=== PATIENT | female | born 1980 | race Caucasian/White ===

== ENCOUNTER → 2021-09-16 07:45 | Outpatient (CLI) | payer OTHER, SELFPAY ==
[2021-09-16 12:30] LABS: Influenza Control Positive
[2021-09-16 18:54] LABS: SARS-CoV-2 RNA PCR Negative
== END ==
PROVIDERS: PCP Family Medicine; Visit Provider Family Medicine
DX: R68.89 Other general symptoms and signs (principal); Z20.822 Contact with and (suspected) exposure to COVID-19
CPT/HCPCS: 87804; C9803; U0003; U0005

== ENCOUNTER 2022-09-21 14:01 | Emergency (ER) | payer OTHER, SELFPAY ==
[2022-09-21 14:06] VITALS: BP 133/84; PULSE 117; RESP 16; TEMP 37.9; O2SAT 100
--- NOTE | 2022-09-21 14:18 | ED.URI ---
HPI - URI/Sore Throat General Chief Complaint: Upper Respiratory Infection Stated Complaint: ear and sinus infection Time Seen by Provider: 09/21/22 14:22 Source: patient and RN notes reviewed Mode of arrival: ambulatory Limitations: no limitations History of Present Illness HPI Narrative: 41-year-old female presents concern for left ear pain, sinus pressure, sinus congestion, sinus pain. Reports chills and sweats. She denies known sick contacts. Reports she recently had flu. MD elicited complaint: sinus pain and other (Ear pain) Related Data Allergies Allergy/AdvReac Type Severity Reaction Status Date / Time peanut Allergy Unknown Congested Verified 09/21/22 14:25 Penicillins Allergy Unknown Hives Verified 09/21/22 14:25 shellfish derived Allergy Unknown Diarrhea Verified 09/21/22 14:25 strawberry Allergy Unknown Congested Verified 09/21/22 14:25 White Fish Allergy Unknown Itching Uncoded 09/21/22 14:25 Review of Systems Review of Systems: CONSTITUTIONAL: Reports malaise, chills, sweats EYES: Denies visual changes, redness, or discharge. ENT: Reports rhinorrhea, congestion, sinus pain, otalgia CARDIOVASCULAR: Denies chest pain, palpitations, or edema. RESPIRATORY: Denies cough, reports chest congestion. Denies dyspnea. GASTROINTESTINAL: Denies abdominal pain, nausea, vomiting, diarrhea SKIN: Denies rash or itching. MUSCULOSKELETAL: Denies myalgia. NEUROLOGIC: Reports headache. All systems reviewed & are unremarkable except as noted in HPI and below PMFSH Past Medical History Medical History (Updated 09/21/22 @ 14:30 by Vita Hernandez NP) Acute upper respiratory infection, unspecified Chronic sinusitis, unspecified Sinusitis Surgical History Surgical History H/O section Family History Family History Other Family history of multiple sclerosis Social History Social History Years smoked: 20 Smoking status: Current every day smoker Second hand tobacco smoke exposure: Yes Smoking end date: 10/14/12 Alcohol intake: current Drinks per week: 15 Substance use: never Comments At time of signature, agree with nursing past medical, surgical, social and family history. There is no relevant family history pertinent to the presenting complaint Exam Narrative: GENERAL: Nontoxic appearing and in no acute distress. HEAD: Normocephalic EYES: PERRLA, conjunctivae clear ENT: Nares clear, turbinates edematous and erythematous, clear discharge. Mucous membranes moist. TM pearly hodges with dull light reflex on the left, yellow and bulging on the right; no tragal tenderness. Oropharynx not erythematous without lesions. Tonsils not enlarged and without exudate, no drooling, no hoarseness, no trismus, uvula midline. NECK: Supple. No lymphadenopathy CHEST: Clear to auscultation, breath sounds equal. No wheezing, rhonchi, rales, or stridor. No respiratory distress, speaks in full sentences. HEART: Regular rate and rhythm. No murmur heard. SKIN: Warm, dry, no rash. NEURO: Alert and oriented x3. PSYCH: Normal mood and affect Course Course Emergency Course: Patient is aware of diagnosis, understands and agrees to treatment plan. Anticipatory guidance given. Patient agrees to follow-up as directed and is aware of reasons to seek care at the emergency department. Portions of this record may have been created with voice recognition software Level of Care: Express Care Visit Vital Signs Vital signs: Vital Signs Temperature 100.3 F H 09/21/22 14:06 Pulse Rate 117 H 09/21/22 14:06 Respiratory Rate 16 09/21/22 14:06 Blood Pressure 133/84 09/21/22 14:06 Pulse Oximetry 100 09/21/22 14:06 Oxygen Delivery Room Air 09/21/22 14:06 Temperature 100.3 F H 09/21/22 14:06 Pulse Rate 117 H 09/21/22 14:06 Respiratory Rate 16
== END 2022-09-21 14:40 | disposition home or self-care (01) ==
PROVIDERS: Emergency Provider Nurse Practitioner; PCP Family Medicine
DX: H66.92 Otitis media, unspecified, left ear (principal); F17.210 Nicotine dependence, cigarettes, uncomplicated
CPT/HCPCS: 99213; G0463

== ENCOUNTER 2024-06-04 14:30 | Outpatient (CLI) | payer OTHER, SELFPAY ==
[2024-06-04 19:34] LABS: Add Urine Microscopic? NO; Appearance Urine Clear (Clear); Bilirubin Urine Negative (Negative); Blood Urine Negative (Negative); Color Urine Yellow (Yellow); Glucose Urine UA Negative (Negative); Ketones Urine Negative (Negative); Leukocyte Esterase Ur Negative LEU/UL (Negative); Nitrate Urine Negative (Negative); Protein Urine Negative (Negative); Specific Grav Ur 1.012 (1.001-1.035); Urobilinogen Urine 0.2 mg/dL (<2.0)
== END 2024-06-04 14:31 | disposition home or self-care (01) ==
LOC: ANHBWCLAB 14:32
PROVIDERS: PCP Nurse Practitioner Adult Health; Visit Provider Nurse Practitioner Adult Health
DX: M54.50 Low back pain, unspecified (principal); R39.9 Unspecified symptoms and signs involving the genitourinary system; R50.9 Fever, unspecified; R82.90 Unspecified abnormal findings in urine
CPT/HCPCS: 81003

== ENCOUNTER 2025-07-06 07:38 | Outpatient (CLI) | payer BC, SELFPAY ==
--- OUTSIDE RECORDS SUMMARY | 2025-07-06 07:47 | XMS_ITS | Clinical Summary ---
Author Organization [address] Address [address] [place] [address] Care Team Providers Care Customs Consultant Name Role Phone Roly Yepez MD Primary Care Provider [phone] Allergies Active Allergy Reactions Criticality Noted Date Comments Penicillins Shellfish Containing Products [place] Medications benzonatate (TESSALON) 100 mg capsuleIndicati ons:Cough Take 1 capsule (100 mg total) by mouth 3 (three) times a day as needed for cough 42 capsule 4 Active al & mag hydroxide simethicone-dip henhydramine-li docaine-nystati n (MAGIC MOUTHWASH) suspension 6-9-5-1Indicati ons:Thrush, oral Swish and swallow 15 mL every 4 (four) hours as needed (thrush) 360 mL 5 Active mupirocin (BACTROBAN) 2 % ointmentIndicat ions:Infected lesion of skin Apply topically 3 (three) times a day 22 g 5 Active clindamycin (CLEOCIN) 300 mg capsuleIndicati ons:Infected lesion of skin Take 1 capsule (300 mg total) by mouth 3 (three) times a day for 10 days 30 capsule 5 06/07/20 25 Active Problems No known active problems Encounters Date Type Department Care Team Description 05/28/2025 6:00 PM CDT Office Visit [facility] [place] [address] [place] [address] Eilerman, India Lisbet, DIRECTOR OF CASINO Infected lesion of skin (Primary Dx); Thrush, oral from Last 3 Months Surgical History Surgery Date Site/Laterality Comments SECTION Social History Tobacco Use Types Packs/Day Years Used Date Smoking Tobacco: Every Day Cigarettes 0.5 15 Smokeless Tobacco: Never Tobacco Cessation:Ready to Q uit: No; Counseling Given: Not Answered Comments Unknown Sex and Gender Information Value Date Recorded Sex Assigned at Not on file 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 Gender Identity Not on file Sexual Orientation Not on file Obstetrics History Last Filed Vital Signs Vital Sign Reading Time Taken Comments Blood Pressure 122/82 05/28/2025 6:02 PM CDT Pulse 115 05/28/2025 6:02 PM CDT Temperature 36.7 C (98 F) 05/28/2025 6:02 PM CDT Respiratory Rate 20 05/28/2025 6:02 PM CDT Oxygen Saturation 98% 05/28/2025 6:02 PM CDT Inhaled Oxygen Concentration - - Weight 57.2 kg (126 lb) 05/28/2025 6:02 PM CDT Height 165.1 cm (5' 5) 05/28/2025 6:02 PM CDT Body Mass Index 20.97 05/28/2025 6:02 PM CDT Plan of Treatment Health Maintenance Due Date Last Done Comments Breast Cancer Screening-Mammogram 1982 Cervical Cancer Screening 1982 Depression Screening 1982 Hepatitis C Screening 1982 DTaP/Tdap/Td Vaccine (1 - Tdap) 1993 Varicella Vaccines (1 of 2 - 13+ 2-dose series) 12/26/1995 Hepatitis B Screening 2000 Regular Well Visit/Exam 18-64 2000 Pneumococcal vaccine <65 (1 of 2 - PCV) 2001 HPV Vaccines (1 - 3-dose SCDM series) 2009 Covid-19 Vaccine (3 - 2024- season) 2025, 06/09/2021 Influenza Vaccine (#1) 2025 Care Teams Customs Consultant Relationship Specialty Start Date End Date Roly Yepez MD PCP - General Family Practice 10/16/23
[2025-07-06 18:41] LABS: Hematocrit 38.4 % (37.0-47.0); Hemoglobin 11.2 g/dL (12.0-15.0); Mean Corpuscular HGB Conc 29.2 g/dl (32-36); Mean Corpuscular Hemoglobin 25.4 pg (26-34); Mean Corpuscular Volume 87.1 fl (80-100); Platelet Count Result 347 k/mm3 (150-375); Red Blood Count 4.41 M/mm3 (4.2-5.4); White Blood Count 5.9 K/mm3 (4.5-10.0)
[2025-07-06 19:35] LABS: Alanine Aminotransferase 20 U/L (6-35); Albumin Level 4.6 g/dL (3.5-5.1); Alkaline Phosphatase 72 U/L (38-126); Anion Gap 7 mmol/L (4-12); Aspartate Amino Transferase 68 U/L (14-36); Bilirubin,Total 0.2 mg/dL (0.2-1.3); Blood Urea Nitrogen 17 mg/dL (7-17); Calcium 9.3 mg/dL (8.4-10.2); Carbon Dioxide 29 mmol/L (22-30); Chloride 103 mmol/L (98-107); Cholesterol 140 mg/dL (0-200); Estimated Glomerular Filt Rate > 60; Glucose 86 mg/dL (65-110); HDL Direct 66 mg/dL; Potassium 4.3 mmol/L (3.4-5.0); Sodium 139 mmol/L (137-145); Total Protein 7.8 g/dL (6.3-8.2); Triglycerides 85 mg/dL (<150)
[2025-07-06 19:54] LABS: Free T4 Free Thyroxine 1.00 ng/dL (0.78-2.19)
[2025-07-06 20:13] LABS: Thyroid Stimulating Hormone 5.840 uIU/mL (0.465-4.680)
[2025-07-09 09:09] LABS: ANA by IFA Rfx Titer/Pattern Positive (.)
== END 2025-07-06 07:39 | disposition home or self-care (01) ==
LOC: ANHBWCLAB 07:39
PROVIDERS: PCP Nurse Practitioner Adult Health; Visit Provider Nurse Practitioner Adult Health
DX: Z00.00 Encounter for general adult medical examination without abnormal findings (principal); Z13.9 Encounter for screening, unspecified
CPT/HCPCS: 36415; 80053; 80061; 84439; 84443; 85027; 86038

== ENCOUNTER 2025-07-27 07:44 | Outpatient (CLI) | payer BC, SELFPAY ==
--- OUTSIDE RECORDS SUMMARY | 2025-07-27 07:50 | XMS_ITS | Clinical Summary ---
Author Organization [address] Address [address] [place] [address] Care Team Providers Care Lead Cargo Mover Name Role Phone Roly Yepez MD Primary Care Provider [phone] Allergies Active Allergy Reactions Criticality Noted Date Comments Penicillins Shellfish Containing Products [place] Medications benzonatate (TESSALON) 100 mg capsuleIndicati ons:Cough Take 1 capsule (100 mg total) by mouth 3 (three) times a day as needed for cough 42 capsule 4 Active al & mag hydroxide simethicone-dip henhydramine-li docaine-nystati n (MAGIC MOUTHWASH) suspension 6-5-3-1Indicati ons:Thrush, oral Swish and swallow 15 mL every 4 (four) hours as needed (thrush) 360 mL 5 Active mupirocin (BACTROBAN) 2 % ointmentIndicat ions:Infected lesion of skin Apply topically 3 (three) times a day 22 g 5 Active Active Problems No known active problems Encounters Date Type Department Care Team Description 05/28/2025 6:00 PM CDT Office Visit [facility] [place] [address] [place] [address] India Amado NP Infected lesion of skin (Primary Dx); Thrush, [...] on file 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
--- OUTSIDE RECORDS SUMMARY | 2025-07-27 07:51 | XMS_ITS | Data Portability ---
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 is longer than normal, if persistent will change pills. 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 Is smoking again, so will have to change to minipill. advised quitting smoking as better option, seems unlikely kids are 15 and 17 Not available 11/17/2020 16:28:54 Plan of Treatment Reminders Order Date Submit Date Provider Last Modified By Organization Details Last Modified Time Details Appointments None recorded. Lab unlisted lab - igp, rfx aptima HPV ascu 2018 019 [email or web address] [facility], [address], [address], [place], [address], 9 09:50:02 unlisted lab - igp, rfx aptima HPV ascu [address] [facility], [address] [place] [address], [address], [place], [address], 8 16:18:25 pap, LB + reflex to HR HPV if ASC-U - broom [address] [facility], [address] [place] [address], [address], [place], [address], 6 19:07:04 pap, LB + reflex to HR HPV if ASC-U - broom [address] [facility], [address] [place] [address], [address], [place], [address], 5 15:23:32 Referral None recorded. Procedures None recorded. Surgeries None recorded. Imaging None recorded. Medication Orders Ortho Micronor 0.35 mg tablet 2020 021 [facility], [address] [place] [address], [address], [place], [address], 4 12:32:17 Tri-Sprint ec (28) 0.18 mg(7)/0.21 5 mg(7)/0.25 mg(7)-0.03 5 mg tablet 2018 019 [id number], [address], [place], [place], [id number], 4 12:32:22 Patient TargetsNo targets recorded. Patient InstructionsNo instructions recorded. Reason for Referral None Reported. Results Created Date Observation Date Name Description Value Unit Range Abnormal Flag Note LastModifiedBy Organization Detail LastModifiedTime 09/27/2009/29/2015 pap, LB + refle x to HR HPV if ASC-U diagnosis: COMMEN T ALEXI RADHA FOR INTRA EPITH ELIAL LESIO N AND JACIEL ALVAREZ . Not Available [facility] ([facility]) [address] [facility], [place], [address], 09/29/2015 15:23:32 09/27/20 15 09/29/2015 pap, LB + refle x to HR HPV if ASC-U specimen adequacy: COMMCHARITO T SATIS FACTO RY FOR EVALU ATION . ENDOC ERVIC AL AND/O R SQUAM OUS METAP LASTI C CELLS (ENDO CERVI TEETEE COMPO NENT) ARE PRESE NT. Not Available [facility] ([facility]) [address] [facility], [place], [address], 09/29/2015 15:23:32 09/27/20 15 09/29/2015 pap, LB + refle x to HR HPV if ASC-U clinician provided ICD10: YARELY Aguiar Z01.4 19 Not Available [facility] ([facility]) [address] [place], [address], 09/29/2015 15:23:32 09/27/20 15 09/29/2015 pap, LB + refle x to HR HPV if ASC-U performed by: YARELY CAUSEY TH, CYTOT ECHJESSY PEDERSEN T (ASCP ) Not Available [facility] ([facility]) [address] [place], [address], 09/29/2015 15:23:32 09/27/20 15 09/29/2015 pap, LB + refle x to HR HPV if ASC-U . . Not Available [facility] ([facility]) [address] [place], [address], 09/29/2015 15:23:32 09/27/20 15 09/29/2015 pap, LB + refle x to HR HPV if ASC-U note: YARELY T THE PAP SMEAR IS A SCREE SIM TEST NOEMÍ ORTIZ TO AID IN THE DETEC TION OF [place] LIGNA NT AND MALIG NANT CONDI TIONS OF THE UTERI NE CERVI X. IT IS NOT A DIAGN OSTIC PROCE DURE AND SHOUL D NOT BE USED THE SOLE MEANS OF DETEC TING CERVI TEETEE CANCE R. BOTH FALSE -POSI TIVE AND FALSE -NEGA TIVE REPOR TS DO OCCUR . Not Available [facility] ([facility]) [address] [place], [address], 09/29/2015 15:23:32 09/27/20 15 09/29/2015 pap, LB + refle x to HR HPV if ASC-U test methodology: COMMEN T THIS LIQUI D BASED THINP REP(R ) PAP TEST WAS SCREE NICHOLE WITH THE USE OF AN IMAGE GUIDE Kurt Ceballos. Not Available [facility] ([facility]) [address] [place], [address], 09/29/2015 15:23:32 09/27/20 15 09/29/2015 pap, LB + refle x to HR HPV if ASC-U . COMMEN T THE HPV DNA REFLE X CRITE ZEFERINO WERE NOT MET WITH THIS SPECI MEN RESUL T THERE FORE, NO HPV TESTI NG WAS PERFO RMED. Not Available [facility] ([facility]) [address] [place], [address], 09/29/2015 15:23:32 10/02/20 16 10/05/2016 pap, IG + refle x HPV if ASC-U diagnosis: COMMEN T NEGAT RADHA FOR INTRA EPITH ELIAL LESIO N AND MALMAREK ALVAREZ . Not Available [facility] ([facility]) [address] [place], [address], 10/05/2016 19:07:03 10/02/20 16 10/05/2016 pap, IG + refle x HPV if ASC-U specimen adequacy: COMMEN T SATIS FACTO RY FOR EVALU ATION . ENDOC ERVIC AL AND/O R SQUAM OUS METAP LASTI C CELLS (ENDO CERVI TEETEE COMPO NENT) ARE PRESE NT. Not Available [facility] ([facility]) [address] [facility] [place], [address], 10/05/2016 19:07:03 10/02/20 16 10/05/2016 pap, IG + refle x HPV if ASC-U clinician provided ICD10: YARELY Aguiar Z01.4 19 Not Available [facility] ([facility]) [address] [place], [address], 10/05/2016 19:07:03 10/02/20 16 10/05/2016 pap, IG + refle x HPV if ASC-U performed by: FLEX JONES (ASCP ) Not Available [facility] ([facility]) [address] [place], [address], 10/05/2016 19:07:03 10/02/20 16 10/05/2016 pap, IG + refle x HPV if ASC-U . . Not Available [facility] ([facility]) [address] [place], [address], 10/05/2016 19:07:03 10/02/20 16 10/05/2016 pap, IG + refle x HPV if ASC-U note: YARELY Aguiar THE PAP SMEAR IS A SCREE SIM TEST DESIG NICHOLE TO AID IN THE DETEC TION OF [place] LIGNA NT AND MALIG NANT CONDI TIONS OF THE UTERI NE CERVI X. IT IS NOT A DIAGN OSTIC PROCE DURE AND SHOUL D NOT BE USED THE SOLE MEANS OF DETEC TING CERVI TEETEE CANCE R. BOTH FALSE -POSI TIVE AND FALSE -NEGA TIVE REPOR TS DO OCCUR . Not Available [facility] ([facility]) [address] [place], [address], 10/05/2016 19:07:03 10/02/20 16 10/05/2016 pap, IG + refle x HPV if ASC-U test methodology: YARELY Aguiar THIS LIQUI D BASED THINP REP(R ) PAP TEST WAS SCREE NICHOLE WITH THE USE OF AN IMAGE GUIDE D SYSTE M. Not Available [facility] ([facility]) [address] [facility] [address], [place], [address], 10/05/2016 19:07:03 10/02/20 16 10/05/2016 pap, IG + refle x HPV if ASC-U . YARELY Aguiar THE HPV DNA REFLE X CRITE ZEFERINO WERE NOT MET WITH THIS SPECI MEN RESUL T THERE FORE, NO HPV TESTI NG WAS PERFO RMED. Not Available [facility] ([facility]) [address] [facility] [address], [place], [address], 10/05/2016 19:07:03 03/20/20 18 03/24/2018 pap, IG + refle x HR HPV diagnosis: Yarely GARCIA FOR INTRA EPITH ELIAL RADHA N AND JACIEL ALVAREZ . Not Available [facility] ([facility]) [address] [facility] [address], [place], [address], 03/24/2018 16:18:25 03/20/20 18 03/24/2018 pap, IG + refle x HR HPV specimen adequacy: Yarely aguiar Satis facto ry for evalu ation . No endoc ervic al compo nent is ident ified . Not Available [facility] ([facility]) [address] [facility] [address], [place], [address], 03/24/2018 16:18:25 03/20/20 18 03/24/2018 pap, IG + refle x HR HPV clinician provided ICD10: Yarely aguiar Z01.4 19 Not Available [facility] ([facility]) [address] [place], [address], 03/24/2018 16:18:25 03/20/20 18 03/24/2018 pap, IG + refle x HR HPV performed by: Yarely Bustillos , Flex aguiar (ASCP ) Not Available [facility] ([facility]) [address] [place], [address], 03/24/2018 16:18:25 03/20/20 18 03/24/2018 pap, IG + refle x HR HPV . . Not Available [facility] ([facility]) [address] [place], [address], 03/24/2018 16:18:25 03/20/20 18 03/24/2018 pap, IG + refle x HR HPV note: Commen t The Pap smear is a scree sim test desig nichole to aid in the detec tion of kenton ligna nt and malig nant condi tions of the uteri ne cervi x. It is not a diagn ostic proce dure and shoul d not be used as the sole means of detec ting cervi teetee cance r. Both false -posi tive and false -nega tive repor ts do occur . Not Available [facility] ([facility]) [address] [facility] [address], [place], [address], 03/24/2018 16:18:25 03/20/20 18 03/24/2018 pap, IG + refle x HR HPV test methodology: Commen t This liqui d based ThinP rep(R ) pap test was scree nichole with the use of an image guide kurt ceballos. Not Available [facility] ([facility]) [address] [place], [address], 03/24/2018 16:18:25 03/20/20 18 03/24/2018 pap, IG + refle x HR HPV . Commen t The HPV DNA refle x crite zeferino were not met with this speci men resul t there fore, no HPV testi ng was perfo rmed. Not Available [facility] ([facility]) [address] [place], [address], 03/24/2018 16:18:25 11/17/19 21 11/27/2020 pap, IG + refle x HR HPV clinical information: normal Infor matio n not provi ded Not Available [facility] [address], [place], [address], 11/27/2020 15:18:07 11/17/19 21 11/27/2020 pap, IG + refle x HR HPV LMP: normal INFOR MATIO N NOT PROVI DED Not Available [address] [address] [place], [address], 11/27/2020 15:18:07 11/17/19 21 11/27/2020 pap, IG + refle x HR HPV prev. Pap: normal INFOR MATIO N NOT PROVI DED Not Available [address] [address] [place], [address], 11/27/2020 15:18:07 11/17/19 21 11/27/2020 pap, IG + refle x HR HPV prev. BX: normal INFOR MATIO N NOT PROVI DED Not Available [address] [place], [address], 11/27/2020 15:18:07 11/17/19 21 11/27/2020 pap, IG + refle x HR HPV source: normal Endoc ervix Not Available [address], [address], 11/27/2020 15:18:07 11/17/19 21 11/27/2020 pap, IG + refle x HR HPV statement of adequacy: normal Satis facto ry for evalu ation . Endoc ervic al/tr ansfo rmati on zone compo nent prese nt. Age and/o r menst rual statu s not provi ded Not Available [address] [address] [place], [address], 11/27/2020 15:18:07 11/17/19 21 11/27/2020 pap, IG + refle x HR HPV general categorizati on: abnormal EPITH ELIAL CELL ABNOR MALIT Y Not Available [facility] [address] [address] [place], [address], 11/27/2020 15:18:07 11/17/19 21 11/27/2020 pap, IG + refle x HR HPV interpretati on/result: abnormal Atypi teetee Squam ous Cells of Undet ermin ed Signi fican ce (ASC- [place]) Not Available [address] [address] [place], [address], 11/27/2020 15:18:07 11/17/19 21 11/27/2020 pap, IG + refle x HR HPV comment: normal This Pap test has been evalu ated with compu ter lillian dorys techn ology . Sugge st clini teetee corre latio n and follo w-up as clini eliot appro priat e Not Available [address] [address] [place], [address], 11/27/2020 15:18:07 11/17/19 21 11/27/2020 pap, IG + refle x HR HPV cytotechnolo gist: normal BES, CT( CP) CT scree sim locat ion: [address] [address] [place] [address] Not Available [address] [address] [place], [address], 11/27/2020 15:18:07 11/17/19 21 11/27/2020 pap, IG + refle x HR HPV pathologist: normal Janneth king M.D., Board Certi fied in Anato joesph Patho logy and Cytop athol ogy. Phone : [phone] (elec troni c signa ture) Not Available [address] [address] [place], [address], 11/27/2020 15:18:07 11/17/19 21 11/27/2020 pap, IG + refle x HR HPV comment EXPLA NATOR Y NOTE: The Pap is a scree sim test for cervi teetee cance r. It is not a diagn ostic test and is subje ct to false negat radha and false posit radha resul ts. It is most relia ble when a satis facto ry sampl e, regul brit obtai nichole, is submi tted with relev ant clini teetee findi ngs and histo ry, and when the Pap resul t is evalu ated along with histo anjel and curre nt clini teetee infor matio n. Not Available [facility] [address] [place], [address], 11/27/2020 15:18:07 11/17/19 21 11/27/2020 HPV DNA, high- risk HPV DNA, high risk, cervical Not Detect ed not detect ed normal Not Detec dorys High Risk HPV types (16,1 8,31, 33,35 ,39,4 5,51, 52, 56,58 ,59,6 6,68) were not detec dorys. Other HPV types which cause anoge nital lesio ns may be prese nt. The signi fican ce of the other types of HPV in [facility] center nan proce sses has not been estab [place] y: Real Time PCR Not Available [facility] [address], [place], [address], 11/27/2020 15:18:08 Result Notes None recorded. Problems No Known Problems Procedures Surgical History Date Name Laterality Status Provider Name and Address Organization Details Recorded Time Date of Last Pap Smear completed Malinda Martinez RN [facility] 11/29/2020 12:15:37 6 Caesarean Section completed Malinda Martinez RN [facility] 02/14/2015 17:26:20 Imaging Results None recorded. Procedure Notes None recorded. Medical Equipment None Reported. Allergies Allergen ID Allergen Name Allergen Category Reaction Reaction Severity Criticality Documentation Date Start Date Code Code System Note Provider Name and Address Organization Details Recorded Time 20117 Product containin g penicilli n (product) medicatio n Not available Not available Not available 02/14/2015 58500 8007 SNOMED BERHANE Marsh, [facility] 5 17:26:21 Medications Name Sig Start Date Stop Date Status Note LastModified by Organization Details LastModified Time nystatin 100,000 unit/mL oral suspension TK 5 ML PO QID FOR TEN DAYS ADMINISTE R 1/2 OF DOSE IN EACH SIDE OF MOUTH 11/17 completed Not Available Not Available Not Available azithromyci n 250 mg tablet TK 2 TS PO ON DAY 1, THEN TK 1 T PO D FOR 4 DAYS 11/17 completed Not Available Not Available Not Available Ortho Micronor 0.35 mg tablet Take 1 tablet every day by oral route. 01/26 completed Not Available Not Available Not Available Tri-Sprinte c (28) 0.18 mg(7)/0.215 mg(7)/0.25 mg(7)-0.035 mg tablet TAKE 1 TABLET BY MOUTH EVERY DAY 01/26 completed Not Available Not Available Not Available ID NOW COVID-19 Test Kit TEST DIRECTED 11/17 completed Not Available Not Available Not Available Vitals Date Recorded Body weight Systolic And Diastolic Provider Name and Address Organization Details Last Updated DateTime 11/17/2020 64903.67 g 146/78 mm[Hg] Nu Do Jessica [facility] 11/17/2020 16:18:58 Date Recorded Body height Body mass index (BMI) Body weight Systolic And Diastolic Provider Name and Address Organization Details Last Updated DateTime 03/20/2018 165.1 cm 19.5 kg/m2 58059.74 g 124/82 mm[Hg] Daniela Stevens MA [facility] 03/20/2018 14:37:03 Date Recorded Body height Body mass index (BMI) Body weight Systolic And Diastolic Provider Name and Address Organization Details Last Updated DateTime 06/08/2019 165.1 cm 19.2 kg/m2 19687.55 g 106/56 mm[Hg] Daniela Stevens MA [facility] 06/08/2019 15:59:58 Date Recorded Body height Body mass index (BMI) Body weight Systolic And Diastolic Provider Name and Address Organization Details Last Updated DateTime 09/27/2015 165.1 cm 19.5 kg/m2 75576.307 29 g 112/78 mm[Hg] Daniela Stevens MA [facility] 09/27/2015 11:03:29 Date Recorded Body height Body weight Body mass index (BMI) Systolic And Diastolic Provider Name and Address Organization Details Last Updated DateTime 10/02/2016 165.1 cm 86265.12 g 19.1 kg/m2 110/76 mm[Hg] Daniela Stevens MA [facility] 10/02/2016 10:33:43 Social History Question Answer Notes LastModified by Organizat ion Details LastModified Time Tobacco Smoking Status Current Every Day Smoker MERLINE Hess, [facility] 11/17/2020 16:20:05 Is Blood Transfusion Acceptable In An Emergency? Yes Information not available 11/17/2020 How Much Tobacco Do You Chew? None Information not available 11/17/2020 Live Alone Or With Others? With Others Information not available 11/17/2020 What Was The Date Of Your Most Recent Tobacco Screening? 11/17/2020 Information not available 11/17/2020 How Many Children Do You Have? 2 Information not available 09/27/2015 Performs Monthly Self-breast Exam? Yes Information no t available 11/17/2020 Do You Use Protection During Sex? No Information not available 11/17/2020 What Is Your Relationship Status? Information not available 09/27/2015 Seat Belts Used Routinely Yes Information not available 11/17/2020 Are You Sexually Active? Yes Information not available 11/17/2020 How Much Tobacco Do You Smoke? 0.25 PPD Information not available 11/17/2020 Do You Use Sunscreen Routinely? Yes Information not available 11/17/2020 On What Date Was Tobacco Cessation Counseling Provided? 11/17/2020 Information not available 11/17/2020 How Many Years Have You Smoked Tobacco? 20 Information not available 11/17/2020 Sex: Female Functional Status Question Answer Note LastModified by Organizat ion Details LastModified Time Do you or have you ever used smokeless tobacco? Never used smokeless tobacco Information not available 11/17/2020 Do you or have you ever used e-cigarettes or vape? Never used electronic cigarettes Information not available 11/17/2020 Mental Status None recorded. Family History Relationship Description Onset Age of this Age Resolved Age Notes LastModified by Organization Details LastModified Time Father No current problems or disability [email or web address] Not available 11/17 16:20:00 Mother No current problems or disability cgracema Not available 11/17 16:20:00 Notes:no breast ca hx Medical History No medical history recorded. Gynecological History Statement/Question Response Abnormal Pap Y Sexually Active? Y Menses Monthly Y STIs/STDs N HPV Vaccine N Date of Last Pap Smear 11/17/2020 Sexual Problems? N Current Control Method BCPs LMP Definite Obstetrics History GPAL:G 2 P 2 0 0 2 Type Value Full Term 2 Living 2 Total 2 Past Encounters Encounter ID Performer Location Encounter Start Date Encounter Closed Date Diagnosis/Indication Diagnosis SNOMED-CT Code Diagnosis ICD10 Code Diagnosis IMO Codes Diagnosis Note [id number] MD Marcelino Leon ([facility] [address]) [address] [place] [address] 09/27/2015 10:42:22 09/27/2015 11:55:51 Gynecologic examination 10336059 Z01.172 [id number] MD Marcelino Leon ([place] [address]) [address] [place] [address] 10/02/2016 10:22:00 10/02/2016 15:34:38 Gynecologic examination 88664988 Z01.051 [id number] MD Marcelino Leon [address] [place] [address] 03/20/2018 14:25:23 03/24/2018 11:08:10 Gynecologic examination 44606690 Z01.498 [id number] MD Marcelino Leon [address] [place] [address] 06/08/2019 15:44:36 06/09/2019 09:33:07 Gynecologic examination 21890223 Z01.419 Contracept ion care management 146071802 Z30.9 [id number] MD Marcelino Leon [address] [place] [address] 11/17/2020 15:59:57 11/18/2020 12:54:32 Gynecologic examination 29868509 Z01.419 [facility] care management 492609169 Z30.9 Health Concerns Section Related Observation LastModified by Organization Detai ls LastModified Time None Recorded Concern Status LastModified by Organization Details LastModified Time None Recorded Advance Directives Directive None Recorded Payers Insurance Date Sequence Insurance Name Policy Number Policy Rivas Covered Member ID Rivas Member ID Guarantor Name 01/25/2024 1 [employer] Veronica Louise [id number] Veronica Dhillon 09/27/2015 1 [employer] - DOS PRIOR TO 21 - [facility] BENEFITS PLAN [id number] Veronica Louise [id number] Veronica Dhillon 06/08/2019 1 [employer] - [facility] TRUST - OPEN ACCESS (PPO) [id number] Veronica Louise [id number] Veronica Dhillon 09/28/2016 2 [employer] - [facility] BENEFITS (PPO) [id number] Veronica Louise [id number] Veronica Dhillon Notes Date Note Type Note Provider Name and Address Organization Details Recorded Time 5 text/html Annual GYNReported by PatientGenitourinary symptomsFor menstrual cycle, patient reportsnormal menses. For urinary symptoms, patient reportsno hematuriaandno incontinence. For vulva, patient reportsno genital lesion. For vagina, patient reportsnormal vaginal discharge.Breast symptomsFor breast, patient reportsno breast pain,no breast lump, andno nipple discharge.ContraceptionFo r current contraception, patient reportsoral contraceptives.Endocrine symptomsFor sexual complaints, patient reportsno sexual complaints,no pain during intercourse, andnormal libido. For menopausal symptoms, patient reportsno menopausal symptomsandnormal vaginal lubrication.Psychological symptomsFor psychological symptoms, patient reportsno depression,no anxiety, andno pmdd.ROS as noted in the HPI Ramesh Camejo MD Attn: Accounting,[address] [facility], [place], [address], [facility] 09/27/2015 11:13:23 6 text/html Annual GYNReported by PatientGenitourinary symptomsFor menstrual cycle, patient reportsnormal menses. For urinary symptoms, patient reportsno hematuriaandno incontinence. For vulva, patient reportsno genital lesion. For vagina, patient reportsnormal vaginal discharge.Breast symptomsFor breast, patient reportsno breast pain,no breast lump, andno nipple discharge.ContraceptionFo r current contraception, patient reportsoral contraceptives.Endocrine symptomsFor sexual complaints, patient reportsno sexual complaints,no pain during intercourse, andnormal libido. For menopausal symptoms, patient reportsno menopausal symptomsandnormal vaginal lubrication.Psychological symptomsFor psychological symptoms, patient reportsno depression,no anxiety, andno pmdd.ROS as noted in the [facility] Ramesh Camejo MD Attn: Accounting,[address] [place], [address], [facility] 10/02/2016 10:52:43 8 text/html Annual GYNReported by PatientGenitourinary symptomsFor menstrual cycle, patient reportsnormal menses. For urinary symptoms, patient reportsno hematuriaandno incontinence. For vulva, patient reportsno genital lesion. For vagina, patient reportsnormal vaginal discharge.Breast symptomsFor breast, patient reportsno breast pain,no breast lump, andno nipple discharge.ContraceptionFo r current contraception, patient reportsoral contraceptives.Endocrine symptomsFor sexual complaints, patient reportsno sexual complaints,no pain during intercourse, andnormal libido. For menopausal symptoms, patient reportsno menopausal symptomsandnormal vaginal lubrication.Psychological symptomsFor psychological symptoms, patient reportsno depression,no anxiety, andno pmdd.ROS as noted in the [facility] Ramesh Camejo MD Attn: Accounting,[address] [place], [address], [facility] 03/20/2018 15:01:27 9 text/html Annual GYNReported by PatientGenitourinary symptomsFor menstrual cycle, patient reportsnormal menses. For urinary symptoms, patient reportsno hematuriaandno incontinence. For vulva, patient reportsno genital lesion. For vagina, patient reportsnormal vaginal discharge.Breast symptomsFor breast, patient reportsno breast pain,no breast lump, andno nipple discharge.ContraceptionFo r current contraception, patient reportsoral contraceptives.Endocrine symptomsFor sexual complaints, patient reportsno sexual complaints,no pain during intercourse, andnormal libido. For menopausal symptoms, patient reportsno menopausal symptomsandnormal vaginal lubrication.Psychological symptomsFor psychological symptoms, patient reportsno depression,no anxiety, andno pmdd.ROS as noted in the [facility] Ramesh Camejo MD Attn: Accounting,[address] [facility], [place], [address], [facility] 06/08/2019 16:09:02 text/html Annual GYNReported by PatientGenitourinary symptomsFor menstrual cycle, patient reportsnormal menses. For urinary symptoms, patient reportsno hematuriaandno incontinence. For vulva, patient reportsno genital lesion. For vagina, patient reportsnormal vaginal discharge.Breast symptomsFor breast, patient reportsno breast pain,no breast lump, andno nipple discharge.ContraceptionFo r current contraception, patient reportsoral contraceptives.Endocrine symptomsFor sexual complaints, patient reportsno sexual complaints,no pain during intercourse, andnormal libido. For menopausal symptoms, patient reportsno menopausal symptomsandnormal vaginal lubrication.Psychological symptomsFor psychological symptoms, patient reportsno depression,no anxiety, andno pmdd.ROS as noted in the [facility] Ramesh Camejo MD Attn: Accounting,[address] [facility], [place], [address], [facility] 11/17/2020 16:29:06 OBGyn Episode No OBEpisode recorded.
[2025-07-27 19:01] LABS: Iron 13 ug/dL (37-170)
[2025-07-27 19:10] LABS: Percent Iron Saturation 2 % (20-50)
[2025-07-27 19:37] LABS: Ferritin 7.01 ng/mL (6.24-137)
== END 2025-07-27 07:45 | disposition home or self-care (01) ==
PROVIDERS: PCP Nurse Practitioner Adult Health; Visit Provider Nurse Practitioner Adult Health
DX: D64.9 Anemia, unspecified (principal); R79.89 Other specified abnormal findings of blood chemistry
CPT/HCPCS: 36415; 82728; 83540; 83550; 86376